=== PATIENT | female | born 1990 | race Caucasian/White ===

== ENCOUNTER 2017-08-27 05:20 | Emergency (ER) | payer OTHER ==
[2017-08-27 05:32] VITALS: RESP 16
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
[2017-08-27] MEDS ORDERED: IBUPROFEN 600 MG TAB PO STA (05:55)
[2017-08-27] MEDS ORDERED: HYDROcodone/APAP 5-325MG 1 EACH TAB PO STA (05:56)
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
[2017-08-27 06:53] VITALS: BP 146/69; PULSE 78; TEMP 98.2
== END 2017-08-27 06:52 | disposition home or self-care (01) ==
LOC: EC 05:20
DX: S16.1XXA Strain of muscle, fascia and tendon at neck level, initial encounter (principal); S00.83XA Contusion of other part of head, initial encounter; F17.200 Nicotine dependence, unspecified, uncomplicated; V86.15XA Passenger of 3- or 4- wheeled all-terrain vehicle (ATV) injured in traffic accident, initial encounter; Y92.410 Unspecified street and highway as the place of occurrence of the external cause
CPT/HCPCS: 70450; 72125; 99284

== ENCOUNTER 2020-01-06 08:48 | Emergency (ER) | payer OTHER ==
[2020-01-06 09:01] VITALS: TEMP 98.4
[2020-01-06] MEDS ORDERED: ACETAMINOPHEN TAB 500 MG TAB PO STA (09:24)
--- NOTE | 2020-01-06 09:39 | ED ---
General Adult HPI - General Chief complaint: Upper Respiratory Infection Stated complaint: body aches Time Seen by Provider: 01/06/20 09:09 Source: patient, RN notes reviewed Mode of arrival: ambulatory Limitations: no limitations - History of Present Illness Initial comments: 29-year-old female presents to the emergency department for chief complaint of cold symptoms. Patient states that she has had cough, congestion, body aches and chills for the past 3 days. She is also complaining of headache. Unsure if she has had fevers at home. States for the past month she has had bilateral ear pain. Patient states she tried eardrops but this did not help. Patient does admit to every day smoking. States she has been trying to cut back while sick. Denies a history of asthma. Denies chest pain or shortness of breath. Patient has no other complaints at this time including shortness of breath, chest pain, abdominal pain, nausea or vomiting, headache, or visual changes. - Related Data Allergies Allergy/AdvReac Type Severity Reaction Status Date / Time No Known Allergies Allergy Verified 08/27/17 05:32 Review of Systems ROS Statement: Those systems with pertinent positive or pertinent negative responses have been documented in the HPI. ROS Other: All systems not noted in ROS Statement are negative. Past Medical History Past Medical History: No Reported History History of Any Multi-Drug Resistant Organisms: None Reported Additional Past Surgical History / Comment(s): ectopic . left hand. Past Psychological History: No Psychological Hx Reported Smoking Status: Current every day smoker Past Alcohol Use History: None Reported, Occasional Past Drug Use History: Marijuana General Exam Limitations: no limitations General appearance: alert, in no apparent distress Head exam: Present: atraumatic, normocephalic, normal inspection Eye exam: Present: normal appearance ENT exam: Present: normal exam, normal oropharynx, mucous membranes moist, TM's normal bilaterally (Nonerythematous, nonbulging), normal external ear exam Neck exam: Present: normal inspection, full ROM. Absent: tenderness, meningismus, lymphadenopathy Respiratory exam: Present: normal lung sounds bilaterally. Absent: respiratory distress, wheezes, rales, rhonchi, stridor Cardiovascular Exam: Present: regular rate, normal rhythm, normal heart sounds. Absent: systolic murmur, diastolic murmur, rubs, gallop, clicks GI/Abdominal exam: Present: soft, normal bowel sounds. Absent: distended, tenderness, guarding, rebound, rigid Neurological exam: Present: alert Course Vital Signs 01/06/20 08:59 Temperature 98.4 F Pulse Rate 105 H Respiratory 18 Rate Blood Pressure 119/80 O2 Sat by Pulse 100 Oximetry Procedures - Smoking Cessation Time Spent Discussing Smoking Cessation w/Patient (Minutes): 3 Patient Acknowledges Need for Cessation: Yes Medical Decision Making - Medical Decision Making Vitals are stable. Physical exam is generally unremarkable. Patient noted to have nasal congestion. Chest x-ray shows no acute pulmonary process. Influenza B is detected. Patient has had symptoms for greater than 3 days, is out of the window for Tamiflu. I discussed supportive treatment including Motrin and Tylenol for fever and plenty of fluids. Discussed following up with primary care and returning if she has any worsening symptoms. I discussed this case with attending Dr. Lawson who agrees with this assessment and treatment plan. - Lab Data Lab Results 01/06/20 01/06/20 Range/Units 10:07 10:07 Urine HCG, Qual Not Detected (Not Detectd) Influenza Type A RNA Not Detected (Not Detectd) Influenza Type B (PCR) Detected H (Not Detectd) Disposition Clinical Impression: Influenza B Disposition: HOME SELF-CARE Condition: Good Instructions (If sedation given, give patient instructions): Influenza (ED) Additional Instructions: Please take Motrin and Tylenol for fever. He may alternate these every 3 hours. Drink plenty of fluids. Follow up with primary care in 1-2 days. Return here to the emergency department if you have any worsening symptoms. Is patient prescribed a controlled substance at d/c from ED?: No Referrals: Kenn Jimenez DO [Primary Care Provider] - 1-2 days Time of Disposition: 11:29
--- NOTE | 2020-01-06 10:07 | XR ---
EXAMINATION TYPE: XR chest 2V DATE OF EXAM: 01/06/2020 COMPARISON: None INDICATION: Cough, headaches, ear pain TECHNIQUE: Frontal and lateral views of the chest are obtained. FINDINGS: The heart size is normal. The pulmonary vasculature is normal. The lungs are clear. IMPRESSION: 1. No acute pulmonary process.
[2020-01-06 11:32] VITALS: RESP 20
[2020-01-06 11:35] VITALS: BP 120/79; PULSE 78
== END 2020-01-06 11:35 | disposition home or self-care (01) ==
LOC: EC 08:48
DX: J10.1 Influenza due to other identified influenza virus with other respiratory manifestations (principal); H92.03 Otalgia, bilateral; F17.200 Nicotine dependence, unspecified, uncomplicated; Z71.6 Tobacco abuse counseling
CPT/HCPCS: 71046; 81025; 87502; 99283; 99406

== ENCOUNTER 2020-05-28 19:20 | Emergency (ER) | payer OTHER ==
[2020-05-28 19:36] VITALS: RESP 18
--- NOTE | 2020-05-28 20:05 | ED ---
Female Urogenital HPI - General Chief complaint: Vaginal Bleeding Stated complaint: Vaginal bleeding, Time Seen by Provider: 05/28/20 19:37 Source: patient, family Mode of arrival: ambulatory Limitations: no limitations - History of Present Illness Initial comments: Patient is a 29-year-old female presenting to emergency Department with complai nts of vaginal bleeding that has been intermittent for the past 2-3 days. She did have a positive test approximately 2 weeks ago. She is a . She does have history of 2 previous ectopic pregnancies. She states that she started to have some bleeding 2 days ago, stopped and then restarted yesterday. Patient states the same thing happened today. She is getting some very mild lower abdominal cramping. She states with her history of ectopic she wanted to come in right away. She denies any recent fever, chills, nausea, vomiting, urinary complaints. She admits to history of laparoscopic surgery secondary to first ectopic , no other abdominal surgeries. She has no further complaints at this time. Upon arrival to the ER, her vital signs are stable. - Related Data Home Medications Medication Instructions Recorded Confirmed No Known Home Medications 05/28/20 05/28/20 Allergies Allergy/AdvReac Type Severity Reaction Status Date / Time No Known Allergies Allergy Verified 05/28/20 22:26 Review of Systems ROS Statement: Those systems with pertinent positive or pertinent negative responses have been documented in the HPI. ROS Other: All systems not noted in ROS Statement are negative. Past Medical History Past Medical History: No Reported History History of Any Multi-Drug Resistant Organisms: None Reported Additional Past Surgical History / Comment(s): ectopic . left hand. Past Psychological History: No Psychological Hx Reported Smoking Status: Current every day smoker Past Alcohol Use History: None Reported, Occasional Past Drug Use History: Marijuana General Exam - General Exam Comments Initial Comments: GENERAL: Well-appearing, well-nourished and in no acute distress. HEAD: Atraumatic, normocephalic. EYES: Pupils equal round and reactive to light, extraocular movements intact, sclera anicteric, conjunctiva are normal. ENT: TMs normal, nares patent, oropharynx clear without exudates. Moist mucous membranes. NECK: Normal range of motion, supple without lymphadenopathy or JVD. LUNGS: Breath sounds clear to auscultation bilaterally and equal. No wheezes rales or rhonchi. HEART: Regular rate and rhythm without murmurs, rubs or gallops. ABDOMEN: Soft, nontender, normoactive bowel sounds. No guarding, no rebound. No masses appreciated. EXTREMITIES: Normal range of motion, no pitting or edema. No clubbing or cyanosis. NEUROLOGICAL: Normal speech, normal gait. PSYCH: Normal mood, normal affect. SKIN: Warm, Dry, normal turgor, no rashes or lesions noted. Limitations: no limitations External exam: Present: normal external exam Speculum exam: Present: vaginal bleeding. Absent: foreign body By manual exam: Present: normal by manual exam Course Vital Signs 05/28/20 05/28/20 19:32 23:31 Temperature 98.4 F 98.1 F Pulse Rate 104 H 100 Respiratory 18 18 Rate Blood Pressure 131/78 138/99 O2 Sat by Pulse 100 100 Oximetry Medical Decision Making - Medical Decision Making Patient is a 29-year-old female here for vaginal bleeding 2-3 days. She did have a positive test 2 weeks ago. She has history of 2 previous e ctopic pregnancies. She is having just some mild lower abdominal cramping, no pain with palpation on exam. We did confirm regnancy with a positive urine test, urine shows no signs of infection at this time. Lab work shows no acute abnormality, hCG Rick is 31,000. Ultrasound shows evidence of intrauterine demise at approximately 8 weeks, no other mass or free fluid. She does have a complex left ovarian cyst. There is no active heart tones at this time. I discussed these findings with the patient. She states that she has not yet seen an [facility], I did give her a referral. I also gave her a lab slip for repeat beta in 48 hours. Strict return parameters were discussed with the pat ient she verbalized understanding. She is stable for discharge. Case discussed with Dr. Wilson. - Lab Data Result diagrams: 05/28/20 21:28 05/28/20 21:28 Lab Results 05/28/20 05/28/20 05/28/20 Range/Units 20:04 20:04 21:28 WBC (3.8-10.6) k/uL RBC (3.80-5.40) m/uL Hgb (11.4-16.0) gm/dL Hct (34.0-46.0) % MCV (80.0-100.0) fL MCH (25.0-35.0) pg MCHC (31.0-37.0) g/dL RDW (11.5-15.5) % Plt Count (150-450) k/uL Neutrophils % % Lymphocytes % % Monocytes % % Eosinophils % % Basophils % % Neutrophils # (1.3-7.7) k/uL Lymphocytes # (1.0-4.8) k/uL Monocytes # (0-1.0) k/uL Eosinophils # (0-0.7) k/uL Basophils # (0-0.2) k/uL Sodium (137-145) mmol/L Potassium (3.5-5.1) mmol/L Chloride (98-107) mmol/L Carbon Dioxide (22-30) mmol/L Anion Gap mmol/L BUN (7-17) mg/dL Creatinine (0.52-1.04) mg/dL Est GFR (CKD-EPI)AfAm (>60 ml/min/1.73 sqM) Est GFR (CKD-EPI)NonAf (>60 ml/min/1.73 sqM) Glucose (74-99) mg/dL Calcium (8.4-10.2) mg/dL Total Bilirubin (0.2-1.3) mg/dL AST (14-36) U/L ALT (4-34) U/L Alkaline Phosphatase (38-126) U/L Total Protein (6.3-8.2) g/dL Albumin (3.5-5.0) g/dL HCG, Quant mIU/mL Urine Color Yellow Urine Appearance Cloudy H (Clear) Urine pH 6.5 (5.0-8.0) Ur Specific [place] 1.018 (1.001-1.035) Urine Protein Negative (Negative) Urine Glucose (UA) Negative (Negative) Urine Ketones Negative (Negative) Urine Blood Large H (Negative) Urine Nitrite Negative (Negative) Urine Bilirubin Negative (Negative) Urine Urobilinogen <2.0 (<2.0) mg/dL Ur Leukocyte Esterase Trace H (Negative) Urine RBC 2 (0-5) /hpf Urine WBC 8 H (0-5) /hpf Ur Squamous Epith Cells 4 (0-4) /hpf Amorphous Sediment Rare H (None) /hpf Urine Bacteria Rare H (None) /hpf Urine Mucus Rare H (None) /hpf Urine HCG, Qual Detected (Not Detectd) Blood Type B Negative Blood Type Recheck B Neg Bld Type Recheck Status ABR ONLY 05/28/20 05/28/20 Range/Units 21:28 21:28 WBC 10.5 (3.8-10.6) k/uL RBC 4.43 (3.80-5.40) m/uL Hgb 14.0 (11.4-16.0) gm/dL Hct 40.5 (34.0-46.0) % MCV 91.3 (80.0-100.0) fL MCH 31.6 (25.0-35.0) pg MCHC 34.6 (31.0-37.0) g/dL RDW 12.0 (11.5-15.5) % Plt Count 277 (150-450) k/uL Neutrophils % 61 % Lymphocytes % 27 % Monocytes % 7 % Eosinophils % 2 % Basophils % 1 % Neutrophils # 6.4 (1.3-7.7) k/uL Lymphocytes # 2.8 (1.0-4.8) k/uL Monocytes # 0.7 (0-1.0) k/uL Eosinophils # 0.2 (0-0.7) k/uL Basophils # 0.1 (0-0.2) k/uL Sodium 135 L (137-145) mmol/L Potassium 4.1 (3.5-5.1) mmol/L Chloride 103 (98-107) mmol/L Carbon Dioxide 25 (22-30) mmol/L Anion Gap 7 mmol/L BUN 9 (7-17) mg/dL Creatinine 0.55 (0.52-1.04) mg/dL Est GFR (CKD-EPI)AfAm >90 (>60 ml/min/1.73 sqM) Est GFR (CKD-EPI)NonAf >90 (>60 ml/min/1.73 sqM) Glucose 97 (74-99) mg/dL Calcium 9.4 (8.4-10.2) mg/dL Total Bilirubin 0.4 (0.2-1.3) mg/dL AST 23 (14-36) U/L ALT 22 (4-34) U/L Alkaline Phosphatase 43 (38-126) U/L Total Protein 6.6 (6.3-8.2) g/dL Albumin 4.0 (3.5-5.0) g/dL HCG, Quant 82815.1 mIU/mL Urine Color Urine Appearance (Clear) Urine pH (5.0-8.0) Ur Specific [place] (1.001-1.035) Urine Protein (Negative) Urine Glucose (UA) (Negative) Urine Ketones (Negative) Urine Blood (Negative) Urine Nitrite (Negative) Urine Bilirubin (Negative) Urine Urobilinogen (<2.0) mg/dL Ur Leukocyte Esterase (Negative) Urine RBC (0-5) /hpf Urine WBC (0-5) /hpf Ur Squamous Epith Cells (0-4) /hpf Amorphous Sediment (None) /hpf Urine Bacteria (None) /hpf Urine Mucus (None) /hpf Urine HCG, Qual (Not Detectd) Blood Type Blood Type Recheck Bld Type Recheck Status Disposition Clinical Impression: Threatened Disposition: HOME SELF-CARE Condition: Stable Instructions (If sedation given, give patient instructions): Threatened Miscarriage (ED) Additional Instructions: Please return to the Emergency Department if symptoms worsen or any other concerns. Repeat beta levels in 48 hours as discussed. Follow up with [facility]. Is patient prescribed a controlled substance at d/c from ED?: No Referrals: None,Stated [Primary Care Provider] - 1-2 days Larry Mccurdy MD [STAFF PHYSICIAN] - 1-2 days
[2020-05-28 20:33] LABS: Amorphous Sediment,Urine Rare /hpf; Appearance,Urine Cloudy (Clear); Bacteria,Urine Rare /hpf; Bilirubin,Urine Negative (Negative); Blood,Urine Large (Negative); Color,Urine Yellow; Glucose,Urine (UA) Negative (Negative); Ketones,Urine Negative (Negative); Leukocyte Esterase,Urine Trace (Negative); Mucus,Urine Rare /hpf; Nitrite,Urine Negative (Negative); PH, Urine 6.5 (5.0-8.0); Protein,Urine Negative (Negative); RBC,Urine 2 /hpf (0-5); Specific Gravity,Urine 1.018 (1.001-1.035); Squamous Epithelial Cell,Urine 4 /hpf (0-4); Urobilinogen,Urine <2.0 mg/dL (<2.0); WBC,Urine 8 /hpf (0-5)
[2020-05-28 21:40] LABS: Basophils # (A) 0.1 k/uL (0-0.2); Basophils % (A) 1 %; Eosinophils # (A) 0.2 k/uL (0-0.7); Eosinophils % (A) 2 %; HCT 40.5 % (34.0-46.0); Lymphocytes # (A) 2.8 k/uL (1.0-4.8); Lymphocytes % (A) 27 %; MCH 31.6 pg (25.0-35.0); MCHC 34.6 g/dL (31.0-37.0); MCV 91.3 fL (80.0-100.0); Mean Platelet Volume 6.8; Monocytes # (A) 0.7 k/uL (0-1.0); Monocytes % (A) 7 %; Neutrophils # (A) 6.4 k/uL (1.3-7.7); Neutrophils % (A) 61 %; Platelet Count 277 k/uL (150-450); RBC 4.43 m/uL (3.80-5.40); WBC 10.5 k/uL (3.8-10.6)
[2020-05-28 21:48] LABS: ALT 22 U/L (4-34); AST 23 U/L (14-36); African American GFR (CKD) >90 (>60 ml/min/1.73 sqM); Alkaline Phosphatase 43 U/L (38-126); Anion Gap 7 mmol/L; Blood Urea Nitrogen 9 mg/dL (7-17); Calcium 9.4 mg/dL (8.4-10.2); Carbon Dioxide 25 mmol/L (22-30); Chloride 103 mmol/L (98-107); Glucose 97 mg/dL (74-99); Non-African American GFR(CKD) >90 (>60 ml/min/1.73 sqM); Potassium 4.1 mmol/L (3.5-5.1); Sodium 135 mmol/L (137-145); Total Bilirubin 0.4 mg/dL (0.2-1.3); Total Protein 6.6 g/dL (6.3-8.2)
[2020-05-28 22:52] LABS: HCG,Quantitative Serum 31592.1 mIU/mL
--- NOTE | 2020-05-28 22:55 | US ---
EXAMINATION TYPE: Transabdominal DATE OF EXAM: 05/28/2020 10:42 PM COMPARISON: US 2013 CLINICAL HISTORY: bleeding, pain. Bleeding and dull pain x 6 days. Hx of 2 ectopic pregnancies. Hx tran rgery for one of the ectopic pregnancies. LMP unknown. . EXAM PERFORMED: Transvaginal (TV) and Transabdominal (TA) EXAM MEASUREMENTS: GESTATIONAL AGE / DATING Physician Established: Not yet established Dates by LMP: Unknown Dates by First Scan: This is first scan Dates by Current Scan for: (8 weeks/3 days) EDC: 01/04/2020 CRL seen with no heart tones at this time. MATERNAL ANATOMY Uterus: 9.8 x 5.3 x 5.8 cm. Uterus appears oblique then retroverted at end of exam. Hypoechoic area s een uterus left: 0.8 x 0.7 x 0.7 cm. Right Ovary: not seen Left Ovary: 3.2 x 2.5 x 1.9 cm. Complex area is seen measurin.7 x 1.5 x 1.4 cm. Post CDS / Adnexa: Possible minimal fluid in CDS seen TA. Prominent vessels seen left adnexa. Presence of free fluid: Possible minimal fluid seen in CDS TA. Presence of corpus luteal cyst: Possible within left ovary as above: Complex area is seen measurin.7 x 1.5 x 1.4 cm. Presence of subchorionic bleed: not seen GESTATION / SURVEY CRL: 1.87 cm. (8 weeks/3 days) Yolk Sac (normal less than 6mm): not seen Heart Rate: No heart tones seen at this time. IUP: CRL seen with no heart tones at this time. Date of LMP: Unknown Beta HcG (if available): Detected IMPRESSION: The exam shows evidence of intrauterine demise at approximately 8 weeks and 3 days gestation. N o solid adnexal mass or free fluid. Complex left ovarian cyst.
[2020-05-28 23:32] VITALS: BP 138/99; PULSE 100; TEMP 98.1
== END 2020-05-28 23:31 | disposition home or self-care (01) ==
LOC: EC 19:20
DX: O20.0 Threatened abortion (principal); O99.331 Smoking (tobacco) complicating pregnancy, first trimester; O34.81 Maternal care for other abnormalities of pelvic organs, first trimester; N83.292 Other ovarian cyst, left side; F17.200 Nicotine dependence, unspecified, uncomplicated; Z3A.08 8 weeks gestation of pregnancy; Z87.59 Personal history of other complications of pregnancy, childbirth and the puerperium
CPT/HCPCS: 36415; 76801; 76817; 80053; 81001; 81025; 84702; 85025; 86900; 86901; 99284

== ENCOUNTER 2020-06-14 01:12 | Emergency (ER) | payer OTHER ==
[2020-06-14 01:26] VITALS: TEMP 98
[2020-06-14] MEDS ORDERED: KETOROLAC 30 MG/ML 1 ML VIAL IVP STA (02:02)
[2020-06-14] MEDS ORDERED: SODIUM CHLORIDE 0.9% 1,000 ML IV ONE (02:02)
[2020-06-14 02:25] LABS: Basophils # (A) 0.1 k/uL (0-0.2); Basophils % (A) 1 %; Eosinophils # (A) 0.2 k/uL (0-0.7); Eosinophils % (A) 2 %; HCT 39.2 % (34.0-46.0); HGB 13.3 gm/dL (11.4-16.0); Lymphocytes # (A) 2.5 k/uL (1.0-4.8); Lymphocytes % (A) 21 %; MCH 30.6 pg (25.0-35.0); MCV 89.9 fL (80.0-100.0); Mean Platelet Volume 6.8; Monocytes # (A) 0.8 k/uL (0-1.0); Monocytes % (A) 7 %; Neutrophils # (A) 7.8 k/uL (1.3-7.7); Neutrophils % (A) 67 %; Platelet Count 275 k/uL (150-450); RBC 4.36 m/uL (3.80-5.40); RDW 12.4 % (11.5-15.5); WBC 11.5 k/uL (3.8-10.6)
[2020-06-14 02:33] LABS: ALT 20 U/L (4-34); AST 22 U/L (14-36); African American GFR (CKD) >90 (>60 ml/min/1.73 sqM); Albumin 4.2 g/dL (3.5-5.0); Alkaline Phosphatase 53 U/L (38-126); Anion Gap 8 mmol/L; Blood Urea Nitrogen 13 mg/dL (7-17); Calcium 9.5 mg/dL (8.4-10.2); Carbon Dioxide 22 mmol/L (22-30); Chloride 107 mmol/L (98-107); Glucose 110 mg/dL (74-99); INR 1.1 (<1.2); Non-African American GFR(CKD) >90 (>60 ml/min/1.73 sqM); Potassium 3.6 mmol/L (3.5-5.1); Sodium 137 mmol/L (137-145); Total Bilirubin 0.4 mg/dL (0.2-1.3); Total Protein 6.6 g/dL (6.3-8.2)
[2020-06-14] MEDS ORDERED: Rhogam IMMUNE GLOBULIN 1,500 UNIT/1 ML IM ONE (02:39)
--- NOTE | 2020-06-14 02:39 | ED ---
General Adult HPI - General Chief complaint: Vaginal Bleeding Stated complaint: Vag Bleeding Time Seen by Provider: 06/14/20 01:27 Source: patient, family Mode of arrival: wheelchair Limitations: no limitations - History of Present Illness Initial comments: 29-year-old female patient presents to the emergency department today for evaluation of heavy vaginal bleeding. Patient states that she was approximately 8 weeks when she was told she was having a miscarriage. Patient was seen and evaluated on 05/29/2020 had an ultrasound which showed demise. Patient states that yesterday morning around 0100 she had heavy vaginal bleeding that lasted for a couple of hours. States she soaked through several pads but then it stopped. Patient states tonight around 9:30 she started to have bleeding again. Patient states that she is changing her pad approximately 10 times an hour. Clots. She is reporting mild lower abdominal cramping and low back pain. She denies dizziness or weakness. Denies use of anticoagulants or antiplatelet medication. Denies fever or chills. States that she has not followed up with MEDICAL SPECIALIST. Patient denies any recent rash, cough, shortness of breath, chest pain, nausea, vomiting, diarrhea, constipation, numbness, tingling, dizziness, weakness, dysuria, urinary urgency, urinary frequency, headache, visual changes, or any other complaints. - Related Data Previous Rx's Medication Instructions Recorded Ibuprofen [Motrin] 600 mg PO Q8HR PRN #30 tab 06/14/20 Allergies Allergy/AdvReac Type Severity Reaction Status Date / Time No Known Allergies Allergy Verified 06/14/20 01:26 Review of Systems ROS Statement: Those systems with pertinent positive or pertinent negative responses have been documented in the HPI. ROS Other: All systems not noted in ROS Statement are negative. Past Medical History Past Medical History: No Reported History History of Any Multi-Drug Resistant Organisms: None Reported Additional Past Surgical History / Comment(s): ectopic . left hand. Past Psychological History: No Psychological Hx Reported Smoking Status: Current every day smoker Past Alcohol Use History: Occasional Past Drug Use History: Marijuana General Exam Limitations: no limitations General appearance: alert, in no apparent distress, other (This is a well- developed, well-nourished adult female patient in no acute distress. Vital signs upon presentation are temperature 98.0F, pulse 114, respirations 20, blood pressure 114/76, pulse ox 100% on room air.) Respiratory exam: Present: normal lung sounds bilaterally. Absent: respiratory distress, wheezes, rales, rhonchi, stridor Cardiovascular Exam: Present: regular rate, normal rhythm, normal heart sounds. Absent: systolic murmur, diastolic murmur, rubs, gallop, clicks GI/Abdominal exam: Present: soft, normal bowel sounds. Absent: distended, tenderness, guarding, rebound, rigid External exam: Present: normal external exam Speculum exam: Present: vaginal bleeding (heavy bleeding, multiple large blood clots), tissue (in the cervix), other (Cervical os is dilated to approximately 2-3 cm. ) Neurological exam: Present: alert, oriented X3, CN II-XII intact Psychiatric exam: Present: normal affect, normal mood Skin exam: Present: warm, dry, intact, normal color. Absent: rash Course Vital Signs 06/14/20 01:22 Temperature 98 F Pulse Rate 114 H Respiratory 20 Rate Blood Pressure 114/76 O2 Sat by Pulse 100 Oximetry Medical Decision Making - Medical Decision Making 29-year-old female patient presents to the emergency department today for evaluation of heavy vaginal bleeding. Physical examination did reveal soft nontender abdomen. Speculum exam did reveal large amount of blood clots and dark red blood in the vaginal vault. There was some tissue present. I did get as much as I could. Patient underwent ultrasound which showed possible retained products. Labs reviewed and showed normal hemoglobin. HCG level 3100. Upon reevaluation patient reports that the bleeding has slowed. Vital signs are wit hin normal ranges. I did discuss the case with on-call MEDICAL SPECIALIST Dr. Ray who agrees to see patient in his office. She will be discharged instructed to follow-up with MEDICAL SPECIALIST as soon as possible, she is instructed to call Monday morning for an appointment. Return parameters were discussed in detail. She verbalizes understanding and agrees with this plan. - Lab Data Result diagrams: 06/14/20 02:13 06/14/20 02:13 Lab Results 06/14/20 06/14/20 06/14/20 Range/Units 02:13 02:13 02:13 WBC 11.5 H (3.8-10.6) k/uL RBC 4.36 (3.80-5.40) m/uL Hgb 13.3 (11.4-16.0) gm/dL Hct 39.2 (34.0-46.0) % MCV 89.9 (80.0-100.0) fL MCH 30.6 (25.0-35.0) pg MCHC 34.0 (31.0-37.0) g/dL RDW 12.4 (11.5-15.5) % Plt Count 275 (150-450) k/uL Neutrophils % 67 % Lymphocytes % 21 % Monocytes % 7 % Eosinophils % 2 % Basophils % 1 % Neutrophils # 7.8 H (1.3-7.7) k/uL Lymphocytes # 2.5 (1.0-4.8) k/uL Monocytes # 0.8 (0-1.0) k/uL Eosinophils # 0.2 (0-0.7) k/uL Basophils # 0.1 (0-0.2) k/uL PT 11.0 (9.0-12.0) sec INR 1.1 (<1.2) APTT 23.0 (22.0-30.0) sec Sodium 137 (137-145) mmol/L Potassium 3.6 (3.5-5.1) mmol/L Chloride 107 (98-107) mmol/L Carbon Dioxide 22 (22-30) mmol/L Anion Gap 8 mmol/L BUN 13 (7-17) mg/dL Creatinine 0.55 (0.52-1.04) mg/dL Est GFR (CKD-EPI)AfAm >90 (>60 ml/min/1.73 sqM) Est GFR (CKD-EPI)NonAf >90 (>60 ml/min/1.73 sqM) Glucose 110 H (74-99) mg/dL Calcium 9.5 (8.4-10.2) mg/dL Total Bilirubin 0.4 (0.2-1.3) mg/dL AST 22 (14-36) U/L ALT 20 (4-34) U/L Alkaline Phosphatase 53 (38-126) U/L Total Protein 6.6 (6.3-8.2) g/dL Albumin 4.2 (3.5-5.0) g/dL HCG, Quant 3157.5 mIU/mL Blood Type Blood Type Recheck Bld Type Recheck Status Antibody Screen 06/14/20 06/14/20 Range/Units 02:13 02:13 WBC (3.8-10.6) k/uL RBC (3.80-5.40) m/uL Hgb (11.4-16.0) gm/dL Hct (34.0-46.0) % MCV (80.0-100.0) fL MCH (25.0-35.0) pg MCHC (31.0-37.0) g/dL RDW (11.5-15.5) % Plt Count (150-450) k/uL Neutrophils % % Lymphocytes % % Monocytes % % Eosinophils % % Basophils % % Neutrophils # (1.3-7.7) k/uL Lymphocytes # (1.0-4.8) k/uL Monocytes # (0-1.0) k/uL Eosinophils # (0-0.7) k/uL Basophils # (0-0.2) k/uL PT (9.0-12.0) sec INR (<1.2) APTT (22.0-30.0) sec Sodium (137-145) mmol/L Potassium (3.5-5.1) mmol/L Chloride (98-107) mmol/L Carbon Dioxide (22-30) mmol/L Anion Gap mmol/L BUN (7-17) mg/dL Creatinine (0.52-1.04) mg/dL Est GFR (CKD-EPI)AfAm (>60 ml/min/1.73 sqM) Est GFR (CKD-EPI)NonAf (>60 ml/min/1.73 sqM) Glucose (74-99) mg/dL Calcium (8.4-10.2) mg/dL Total Bilirubin (0.2-1.3) mg/dL AST (14-36) U/L ALT (4-34) U/L Alkaline Phosphatase (38-126) U/L Total Protein (6.3-8.2) g/dL Albumin (3.5-5.0) g/dL HCG, Quant mIU/mL Blood Type B Negative Blood Type Recheck B Neg Bld Type Recheck Status No Antibody Screen NEGATIVE - Radiology Data Radiology results: report reviewed, image reviewed Transvaginal ultrasound was obtained. Report was reviewed in its entirety. Impression by Dr. Soto shows complex echogenicity of the endometrium consistent with thickening of blood clots. This is consistent with incomplete retained products. No adnexal mass. Disposition Clinical Impression: Miscarriage, Episode of heavy vaginal bleeding Disposition: HOME SELF-CARE Condition: Good Instructions (If sedation given, give patient instructions): Miscarriage (ED) Additional Instructions: Take medication as directed for pain control. Follow-up with MEDICAL SPECIALIST for recheck as soon as possible. Return to the emergency department immediately for any new, worsening, or concerning symptoms. Prescriptions: Ibuprofen [Motrin] 600 mg PO Q8HR PRN #30 tab PRN Reason: Pain Is patient prescribed a controlled substance at d/c from ED?: No Referrals: Larry Mccurdy MD [STAFF PHYSICIAN] - 1-2 days Time of Disposition: 03:04
[2020-06-14 02:50] LABS: HCG,Quantitative Serum 3157.5 mIU/mL
--- NOTE | 2020-06-14 02:50 | US ---
EXAMINATION TYPE: US transvaginal DATE OF EXAM: 06/14/2020 COMPARISON: NONE CLINICAL HISTORY: Miscarriage; heavy bleeding. demise 05/28/20, heavy bleeding today TECHNIQUE: Transvaginal (TV). Date of LMP: unknown EXAM MEASUREMENTS: Uterus: 8.2 x 5.2 x 5.6 cm Endometrial Stripe: 1.8 cm Right Ovary: 2.9 x 2.0 x 2.0 cm Left Ovary: 2.6 x 1.4 x 1.2 cm 1. Uterus: Anteverted wnl 2. Endometrium: thick and heterogeneous 3. Right Ovary: hypoechoic area measuring 1.4 x 0.9 x 1.0cm, possible corpus luteum 4. Left Ovary: wnl 5. Bilateral Adnexa: wnl 6. Posterior cul-de-sac: wnl Thickened heterogeneous endometrium probable miscarriage in progress. IMPRESSION: Complex echogenicity of the endometrium consistent with thickening and blood clot. This is consistent with incomplete and retained products. No adnexal mass.
[2020-06-14] MEDS ORDERED: ACET/COD 300 MG/30 MG STARTER PACK 6 TAB BTL PO STA (03:06)
[2020-06-14 03:23] VITALS: BP 110/65; PULSE 98; RESP 16
== END 2020-06-14 03:25 | disposition home or self-care (01) ==
LOC: EC 01:12
DX: O03.9 Complete or unspecified spontaneous abortion without complication (principal); O99.331 Smoking (tobacco) complicating pregnancy, first trimester; F17.200 Nicotine dependence, unspecified, uncomplicated; Z3A.08 8 weeks gestation of pregnancy
CPT/HCPCS: 36415; 86900; 86901; 80053; 85025; 85610; 85730; 86850; 84702; 76830; 99284; 96374; 96372; 96361; J2791; J1885

== ENCOUNTER → 2022-04-05 | Outpatient (CLI) | payer OTHER ==
--- NOTE | 2022-04-05 18:08 | XR ---
EXAMINATION TYPE: XR foot complete LT, 3 views DATE OF EXAM: 04/05/2022 Comparison: None Clinical History: 31-year-old female M79.672 Pain in left foot Findings: Mild bunion formation. Small os peroneum noted. No acute fracture, subluxation, or dislocation. Impression: Mild bunion. No acute osseous abnormality seen.
== END | disposition home or self-care (01) ==
LOC: RADXRMAIN 10:05
PROVIDERS: ATTEND Nurse Practitioner Family
DX: M21.612 Bunion of left foot (principal)